=== PATIENT | female | born 1995 | race Caucasian/White ===

== ENCOUNTER 2017-10-14 19:54 | Emergency (ER) | END 2017-10-14 22:36 | disposition left against medical advice (07) | LOC: ER 19:54 | DX: Z53.21 Procedure and treatment not carried out due to patient leaving prior to being seen by health care provider (principal) ==

== ENCOUNTER 2017-11-25 12:22 | Emergency (ER) | payer OTHER ==
[2017-11-25] MEDS ORDERED: RINGERS SOLUTION,LACTATED 1,000 ML IV ONE (13:00)
--- NOTE | 2017-11-25 13:03 | ER Document Report ---
ED Medical Screen (RME) - General Chief Complaint: Headache >24 hrs old Stated Complaint: HEADACHE Time Seen by Provider: 11/25/17 12:54 Notes: RME DISCLOSURE I have seen this patient as part of a Rapid Medical Evaluation and, if applicable, placed any initially appropriate orders. The patient will be seen and fully evaluated, including a full history and physical exam, by a provider ( in Main ED or Fast Track) when a room becomes available. 24-year-old female here with complaints of headache that started 3 days ago and lasted 2 days however has resolved and she no longer has a headache but does continue to have lightheadedness/dizziness that she describes as a feeling that she might pass out. She has tried drinking water without relief. She has also had intermittent lower abdominal cramping and frequent urination for the past 1 week. No vaginal bleeding or discharge. She had a normal ultrasound performed one month ago at her [facility] in [place], she reports. EXAM Minimally tachycardic TRAVEL OUTSIDE OF THE [place] IN LAST 30 DAYS: No - Related Data Allergies/Adverse Reactions: codeine Allergy (Verified 11/25/17 12:53) Past Medical History - Social History Chew tobacco use (# tins/day): No Frequency of alcohol use: None Drug Abuse: None Renal/ Medical History: Denies: Hx Peritoneal Dialysis Physical Exam - Vital signs Vitals: Temp Pulse Resp BP Pulse Ox 99.3 F 105 H 16 132/75 H 99 11/25/17 12:27 11/25/17 12:27 11/25/17 12:27 11/25/17 12:27 11/25/17 12:27 Course - Vital Signs Vital signs: Temp Pulse Resp BP Pulse Ox 99.3 F 105 H 16 132/75 H 99 11/25/17 12:27 11/25/17 12:27 11/25/17 12:27 11/25/17 12:27 11/25/17 12:27
[2017-11-25 13:26] LABS: ABSOLUTE EOSINOPHILS # (AUTO) 0.1 10^3/uL (0.0-0.6); ABSOLUTE LYMPHOCYTES (AUTO) 1.5 10^3/uL (0.5-4.7); ABSOLUTE MONOCYTES (AUTO) 0.6 10^3/uL (0.1-1.4); ABSOLUTE NEUT (AUTO) 10.9 10^3/uL (1.7-8.2); BASOPHILS % (AUTO) 0.3 % (0-2); EOSINOPHILS % (AUTO) 0.7 % (0-6); HEMATOCRIT 37.8 % (36.0-47.0); HEMOGLOBIN 13.4 g/dL (12.0-15.5); LYMPHOCYTES % (AUTO) 11.6 % (13-45); MEAN CORPUSCULAR HEMOGLOBIN 31.4 pg (27.0-33.4); MEAN CORPUSCULAR HGB CONC 35.5 g/dL (32.0-36.0); MEAN CORPUSCULAR VOLUME 88 fl (80-97); MONOCYTES % (AUTO) 4.4 % (3-13); PLATELET COUNT 250 10^3/uL (150-450); RED BLOOD COUNT 4.28 10^6/uL (3.72-5.28); RED CELL DISTRIBUTION WIDTH 11.8 % (11.5-14.0); TOTAL CELLS COUNTED % (AUTO) 100 %; WHITE BLOOD COUNT 13.1 10^3/uL (4.0-10.5)
[2017-11-25 13:31] LABS: APPEARANCE,URINE SLIGHTLY-CLOUDY; BILIRUBIN,URINE NEGATIVE (NEGATIVE); COLOR,URINE YELLOW; GLUCOSE, URINE NEGATIVE (NEGATIVE); KETONES,URINE NEGATIVE (NEGATIVE); LEUKOCYTE ESTERASE,URINE NEGATIVE (NEGATIVE); NITRITE,URINE NEGATIVE (NEGATIVE); PROTEIN,URINE 30 mg/dL (NEGATIVE); URINE SPECIFIC GRAVITY 1.027
[2017-11-25 13:37] LABS: ANION GAP 8 (5-19); BLOOD UREA NITROGEN 8 mg/dL (7-20); CALCIUM 9.8 mg/dL (8.4-10.2); CARBON DIOXIDE 26 mmol/L (22-30); CHLORIDE 104 mmol/L (98-107); GLUCOSE 90 mg/dL (75-110); PHOSPHORUS 2.7 mg/dL (2.5-4.5); POTASSIUM 3.9 mmol/L (3.6-5.0); SODIUM 138.1 mmol/L (137-145)
[2017-11-25 16:22] VITALS: BP 110/67
--- NOTE | 2017-11-25 16:45 | ER Document Report ---
ED General - General Chief Complaint: Headache >24 hrs old Stated Complaint: HEADACHE Time Seen by Provider: 11/25/17 12:54 Information source: Patient TRAVEL OUTSIDE OF THE [place] IN LAST 30 DAYS: No - HPI Patient complains to provider of: headache/dizzy Onset: Other - started Friday Onset/Duration: Gradual Associated symptoms: None Exacerbated by: Denies Relieved by: Denies Similar symptoms previously: No Recently seen / treated by doctor: Yes - u/s one month ago-[facility] 08/12/18 Notes: 22-year-old female presents emergency department stating she had a headache that was diffuse and started Friday. She states that she had it Friday and it resolved spontaneously. She states today she still feels a little bit lightheaded although she is improved since the time she arrived in the emergency department. Patient states she is her last menstrual period was 08/12/2017 he had a ultrasound a month ago. Since [facility] is in [facility]. - Related Data Allergies/Adverse Reactions: codeine Allergy (Verified 11/25/17 12:53) Past Medical History - General Information source: Patient - Social History Smoking Status: Never Smoker Chew tobacco use (# tins/day): No Frequency of alcohol use: None Drug Abuse: None Lives with: Family Family History: Reviewed & Not Pertinent Patient has suicidal ideation: No Patient has homicidal ideation: No - Past Medical History Cardiac Medical History: Reports: None Pulmonary Medical History: Reports: None EENT Medical History: Reports: None Neurological Medical History: Reports: None Endocrine Medical History: Reports: None Renal/ Medical History: Reports: None. Denies: Hx Peritoneal Dialysis Malignancy Medical History: Reports: None GI Medical History: Reports: None Musculoskeltal Medical History: Reports None Skin Medical History: Reports None Psychiatric Medical History: Reports: None Traumatic Medical History: Reports: None Infectious Medical History: Reports: None Surgical Hx: Negative Past Surgical History: Reports: None Review of Systems - Review of Systems Constitutional: Weight gain. denies: Chills, Diaphoresis, Fever, Malaise, Weakness, Recent illness EENT: No symptoms reported Cardiovascular: Dizziness, Lightheaded. denies: Chest pain, Palpitations, Heart racing, Orthopnea, Dyspnea Respiratory: No symptoms reported Gastrointestinal: No symptoms reported Genitourinary: No symptoms reported. denies: Burning, Dysuria, Discharge, Frequency, Flank pain, Hematuria, Incontinence, Pain, Urgency, Retention Female Genitourinary: No symptoms reported, . denies: Vaginal discharge , Vaginal bleeding, Vaginal odor Musculoskeletal: No symptoms reported. denies: Back pain Skin: No symptoms reported Hematologic/Lymphatic: No symptoms reported Neurological/Psychological: See HPI Physical Exam - Vital signs Vitals: Temp Pulse Resp BP Pulse Ox 99.3 F 105 H 16 132/75 H 99 11/25/17 12:27 11/25/17 12:27 11/25/17 12:27 11/25/17 12:27 11/25/17 12:27 - Notes Notes: PHYSICAL EXAMINATION: GENERAL: Well-appearing, well-nourished and in no acute distress. HEAD: Atraumatic, normocephalic. EYES: Pupils equal round and reactive to light, extraocular movements intact, conjunctiva are normal. ENT: Nares patent, oropharynx clear without exudates. Moist mucous membranes. NECK: Normal range of motion, supple without lymphadenopathy LUNGS: Breath sounds clear to auscultation bilaterally and equal. No wheezes rales or rhonchi. HEART: Regular rate and rhythm without murmurs ABDOMEN: Soft, nontender, nondistended abdomen. No guarding, no rebound. No masses appreciated. Female : deferred Musculoskeletal: Normal range of motion, no pitting or edema. No cyanosis. NEUROLOGICAL: Cranial nerves grossly intact. Normal speech, normal gait. Normal sensory, motor exams PSYCH: Normal mood, normal affect. SKIN: Warm, Dry, normal turgor, no rashes or lesions noted. Course - Re-evaluation Re-evalutation: 11/25/17 16:44 Labs- All tests 24 hr 11/25/17 11/25/17 11/25/17 13:10 13:10 13:10 WBC 13.1 H RBC 4.28 Hgb 13.4 Hct 37.8 MCV 88 MCH 31.4 MCHC 35.5 RDW 11.8 Plt Count 250 Seg Neutrophils % 83.0 H Lymphocytes % 11.6 L Monocytes % 4.4 Eosinophils % 0.7 Basophils % 0.3 Absolute Neutrophils 10.9 H Absolute Lymphocytes 1.5 Absolute Monocytes 0.6 Absolute Eosinophils 0.1 Absolute Basophils 0.0 Sodium 138.1 Potassium 3.9 Chloride 104 Carbon Dioxide 26 Anion Gap 8 BUN 8 Creatinine 0.53 Est GFR ( Amer) > 60 Est GFR (Non-Af Amer) > 60 Glucose 90 Calcium 9.8 Phosphorus 2.7 Magnesium 1.9 Urine Color YELLOW Urine Appearance SLIGHTLY-CLOUDY Urine pH 6.0 Ur Specific [place] 1.027 Urine Protein 30 H Urine Glucose (UA) NEGATIVE Urine Ketones NEGATIVE Urine Blood NEGATIVE Urine Nitrite NEGATIVE Urine Bilirubin NEGATIVE Urine Urobilinogen 2.0 H Ur Leukocyte Esterase NEGATIVE Urine WBC (Auto) 5 Urine RBC (Auto) 3 Urine Bacteria (Auto) TRACE Squamous Epi Cells Auto 23 Urine Mucus (Auto) FEW Urine Ascorbic Acid NEGATIVE 11/25/17 16:49 FHT 130s - Vital Signs Vital signs: Temp Pulse Resp BP Pulse Ox 98.9 F 83 16 110/67 100 11/25/17 16:21 11/25/17 16:21 11/25/17 16:21 11/25/17 16:21 11/25/17 16:21 - Laboratory Result Diagrams: 11/25/17 13:10 11/25/17 13:10 Laboratory results interpreted by me: 11/25/17 11/25/17 13:10 13:10 WBC 13.1 H Seg Neutrophils % 83.0 H Lymphocytes % 11.6 L Absolute Neutrophils 10.9 H Urine Protein 30 H Urine Urobilinogen 2.0 H Discharge - Discharge Clinical Impression: , Lightheaded Condition: Stable Disposition: HOME, SELF-CARE Instructions: Dizziness ([facility]) Additional Instructions: Follow up with your physician tomorrow for further care or return to the ED IMMEDIATELY if symptoms worsen or new concerns occur. If you cannot afford to follow up with your primary care physician a list of low cost clinics have been provided at the end of your discharge papers as well. Return to the emergency department if you have fevers, shortness of breath, syncope or passing out or any other concerns. Please call your [facility]OSPITAL MEDICINE DIRECTOR for follow-up this week. Make sure you are drinking plenty of water.
--- NOTE | 2017-11-25 21:21 | EKG REPORT ---
SEVERITY:- NORMAL ECG - SINUS RHYTHM : Confirmed by: Saman Blanchard 25-Nov-2017 21:21:03
== END 2017-11-25 17:09 | disposition home or self-care (01) ==
LOC: ER 12:22
DX: O26.892 Other specified pregnancy related conditions, second trimester (principal); R42 Dizziness and giddiness; Z3A.14 14 weeks gestation of pregnancy; Z88.5 Allergy status to narcotic agent
CPT/HCPCS: 93005; 99284; 96360; 36415; 87086; 83735; 84100; 85025; 80048; 81001; 93010; J7120